=== PATIENT | male | born 1980 | race Two or more races ===

== ENCOUNTER 2020-05-18 08:07 | Emergency (ER) | payer SELFPAY ==
[~2020-05-18] VITALS: Ht 167.6 cm; Wt 78.5 kg
[2020-05-18 08:17] VITALS: BP 146/87
[2020-05-18] MEDS ORDERED: KETOROLAC TROMETH 60MG/2ML VIAL IM ONE (09:30)
== END 2020-05-18 10:48 | disposition home or self-care (01) ==
LOC: ER 08:07
DX: S39.012A Strain of muscle, fascia and tendon of lower back, initial encounter (principal); M43.17 Spondylolisthesis, lumbosacral region; K42.9 Umbilical hernia without obstruction or gangrene; N20.0 Calculus of kidney; X50.9XXA Other and unspecified overexertion or strenuous movements or postures, initial encounter; Y93.89 Activity, other specified; Y92.89 Other specified places as the place of occurrence of the external cause; Y99.8 Other external cause status
CPT/HCPCS: 74176; 81002; 96372; 99284; J1885